=== PATIENT | female | born 1980 | race Caucasian/White ===

== ENCOUNTER 2018-09-11 09:58 | Emergency (ER) | payer MEDICAID ==
[~2018-09-11] VITALS: Ht 149.9 cm; Wt 56.7 kg
[~2018-09-11 09:58] MED LIST: BENZ-248 PO; CLON1TAB10 PO; DIPH50CA8 PO; DIVA500T47 PO; HALO5TAB21 PO; LACT10SO1 PO; LEVO0.0523 PO; MEGE40TA4 PO; QUET200T PO; [UNRECOGNIZED DRUG - CODE] PO
--- NOTE | 2018-09-11 10:21 | NUR ---
PT TO ER BED 7 WITH PEAR PICKER
[2018-09-11 10:23] VITALS: BP 133/78
--- NOTE | 2018-09-11 10:30 | NUR ---
BROUGHT IN BY MANAGEMENT TRAINER FROM [facility]. THEY NOTED PT LEFT GREAT TOE INFLAMMED. PT WITH SEVERE MENTAL DISABILITY UNABLE TO VERBALIZE. HX--UNK RX--UNK
--- NOTE | 2018-09-11 11:22 | NUR ---
XRAY AT BEDSIDE
[2018-09-11] MEDS ORDERED: BACITRACIN OINT 500 UNITS/GM PKT TP ONE (11:35)
[2018-09-11 11:50] VITALS: BP 115/81
--- NOTE | 2018-09-11 11:50 | NUR ---
Patient discharged with v/s stable. Written and verbal after care instructions given and explained to caregiver and pt.rubber attacher verbalized understanding of instructions. Ambulatory with steady gait. All questions addressed prior to discharge. ID band removed. Patient advised to follow up with PMD. Rx of bacitracin ointment given. Patient and caregiver educated on indication of medication including possible reaction and side effects. Opportunity to ask questions provided and answered.
== END 2018-09-11 11:50 | disposition home or self-care (01) ==
LOC: MED 09:58
DX: S91.202A Unspecified open wound of left great toe with damage to nail, initial encounter (principal); E07.9 Disorder of thyroid, unspecified; Z79.899 Other long term (current) drug therapy; Z91.013 Allergy to seafood; Z91.018 Allergy to other foods; X58.XXXA Exposure to other specified factors, initial encounter; Y93.89 Activity, other specified; Y92.89 Other specified places as the place of occurrence of the external cause; Y99.8 Other external cause status
CPT/HCPCS: 73660; 99283

== ENCOUNTER 2018-12-02 16:17 | Emergency (ER) | payer MEDICAID ==
[~2018-12-02] VITALS: Ht 149.9 cm; Wt 59.0 kg
[2018-12-02 16:40] VITALS: BP 117/77
--- NOTE | 2018-12-02 16:55 | NUR ---
38F BIB CAREGIVER FROM [facility]ARE [facility]. PT WAS BITTEN BY OTHER FACILITY MEMBER. EVENT UNWITNESSED. NOTICED BITE FLORENTIN TO R FOREARM. NO ACTIVE BLEEDING NOW. PMH--DEVELOPMENTAL DELAY, AUTISM ALLERGIES--EGGS, SEAFOOD
--- NOTE | 2018-12-02 17:07 | NUR ---
PT AMBULATED WITH CAREGIVER TO ER BED 03
[2018-12-02 17:46] VITALS: BP 128/82
--- NOTE | 2018-12-02 17:46 | NUR ---
Patient discharged with v/s stable. Written and verbal after care instructions given and explained. Patient alert, oriented and verbalized understanding of instructions. Ambulatory with steady gait. All questions addressed prior to discharge. ID band removed. Patient advised to follow up with PMD. Rx of NEOSPORIN TOPICAL OINTMENT given. Patient educated on indication of medication including possible reaction and side effects. Opportunity to ask questions provided and answered.
== END 2018-12-02 17:46 | disposition home or self-care (01) ==
LOC: MED 16:17
DX: S51.851A Open bite of right forearm, initial encounter (principal); E07.9 Disorder of thyroid, unspecified; F84.0 Autistic disorder; Z79.899 Other long term (current) drug therapy; Z91.012 Allergy to eggs; Z91.013 Allergy to seafood; Z86.59 Personal history of other mental and behavioral disorders; W50.3XXA Accidental bite by another person, initial encounter; Y93.89 Activity, other specified; Y92.89 Other specified places as the place of occurrence of the external cause; Y99.8 Other external cause status
CPT/HCPCS: 90471; 90715; 99283

== ENCOUNTER 2020-06-06 13:26 | Emergency (ER) | payer OTHER, MEDICAID ==
[~2020-06-06] VITALS: Ht 147.3 cm; Wt 52.6 kg
[~2020-06-06 13:26] MED LIST changes: +BENZ-203 PO; -BENZ-248 PO; +DIVA500T37 PO; -DIVA500T47 PO; +MEGE40TA33 PO; -MEGE40TA4 PO
[2020-06-06 13:34] VITALS: BP 127/69
[2020-06-06 14:41] VITALS: BP 127/69
== END 2020-06-06 14:41 | disposition home or self-care (01) ==
LOC: MED 13:26
DX: L03.211 Cellulitis of face (principal); E07.9 Disorder of thyroid, unspecified; Z91.012 Allergy to eggs; Z91.013 Allergy to seafood
CPT/HCPCS: 99283

== ENCOUNTER 2021-04-07 10:50 | Emergency (ER) | payer OTHER, MEDICAID ==
[~2021-04-07] VITALS: Ht 149.9 cm; Wt 44.9 kg
[~2021-04-07 10:50] MED LIST changes: -BENZ-203 PO; +BENZ-315 PO; -DIPH50CA8 PO; +LACT-103 PO; -LACT10SO1 PO; +[UNRECOGNIZED DRUG - CODE] PO
--- NOTE | 2021-04-07 12:05 | NUR ---
Audelia tambulated to bed 06 accompanied by mother.
--- NOTE | 2021-04-07 12:10 | NUR ---
PATIENT PRESENTS TO ED WITH R FOOT PAIN. PT CAREGIVER STATES PT HURT FOOT IN CLOSET DOOR. PRESENTS WITH SMALL LACERATION BETWEEN PINKY TOE. DENIES N/V/D; SKIN IS PINK/WARM/DRY; AAOX0 WITH EVEN AND STEADY GAIT; LUNGS CLEAR BL; HR EVEN AND REGULAR; PT DENIES ANY FEVER, CP, SOB, OR COUGH AT THIS TIME; PATIENT STATES PAIN OF 6/10 AT THIS TIME; VSS; PATIENT POSITIONED FOR COMFORT; HOB ELEVATED; BEDRAILS UP X2; BED DOWN. ER MD MADE AWARE OF PT STATUS. PMH: AUTISM, BIPOLAR DISORDER MEDS: HALDOL, BENZTROPINE, CABEROGOLINE ALLERGIES: SHELLFISH, EGGS
--- NOTE | 2021-04-07 12:15 | NUR ---
MELIZA LICEA IS EVALUATING PT AT BEDSIDE
--- NOTE | 2021-04-07 12:31 | NUR ---
RAD at bedside
--- NOTE | 2021-04-07 13:00 | NUR ---
MELIZA Swain is at bedside for wound repair. Assisted with PA to dermabond. and luciana tape applied to digits 3rd 4th and 5th of R foot. 2x2 gauze applied underneath. +CMS. Caregiver remains at bedside for assistance
[2021-04-07] MEDS ORDERED: IBUP-2213 PO (13:15)
[2021-04-07] MEDS ORDERED: CEPH500T PO (13:15)
--- NOTE | 2021-04-07 13:25 | NUR ---
Patient discharged with v/s stable. Written and verbal after care instructions ABOUT LACERATION CARE AND TOE FRACTURE given and explained. Patient alert, oriented and verbalized understanding of instructions. Ambulatory with steady gait. All questions addressed prior to discharge. ID band removed. Patient advised to follow up with PMD. Rx of CEPHALEXIN AND IBUPROFEN given. Patient educated on indication of medication including possible reaction and side effects. Opportunity to ask questions provided and answered.
== END 2021-04-07 13:25 | disposition home or self-care (01) ==
LOC: MED 10:50
DX: S99.291A Other physeal fracture of phalanx of right toe, initial encounter for closed fracture (principal); X58.XXXA Exposure to other specified factors, initial encounter; Y93.89 Activity, other specified; Y92.89 Other specified places as the place of occurrence of the external cause; Y99.8 Other external cause status
CPT/HCPCS: 12001; 73630; 99283; Q0092

== ENCOUNTER 2021-04-08 10:05 | Emergency (ER) | payer OTHER, MEDICAID ==
[~2021-04-08] VITALS: Ht 149.9 cm; Wt 49.9 kg
[~2021-04-08 10:05] MED LIST changes: +CEPH500T PO; +IBUP-2213 PO
[2021-04-08 10:10] VITALS: BP 123/67
--- NOTE | 2021-04-08 10:18 | NUR ---
PT AMBULATED TO ER BED 6 WITH CAREGIVER
--- NOTE | 2021-04-08 10:48 | NUR ---
40 Y/O F HERE WITH TREE DOCTOR HERE FOR FOLLOW UP WOUND CHECK. R ANKLE SWEELING. PT'S BASELINE IS NON VERBAL. ALLERGIES: EGGS, SEAFOOD
[2021-04-08] MEDS ORDERED: BACITRACIN OINT 500 UNITS/GM PKT TP ONE ×2 (11:21→11:25)
--- NOTE | 2021-04-08 11:32 | NUR ---
APPLIED BACITRACIN TO PT'S WOUND AND DRESSED WITH NON-ADHERENT GUAZE PAD AND WRAPPED WITH 3" GUAZE ROLL.
--- NOTE | 2021-04-08 11:45 | NUR ---
Patient discharged with v/s stable. Written and verbal after care instructions given and explained. Patient verbalized understanding. Wheel Chair Assisted with by caregiver. All questions addressed prior to discharge. Advised to follow up with PMD.
== END 2021-04-08 11:45 | disposition home or self-care (01) ==
LOC: MED 10:05
DX: Z48.01 Encounter for change or removal of surgical wound dressing (principal); F31.9 Bipolar disorder, unspecified; Z86.69 Personal history of other diseases of the nervous system and sense organs; Z86.39 Personal history of other endocrine, nutritional and metabolic disease; Z79.1 Long term (current) use of non-steroidal anti-inflammatories (NSAID); Z79.2 Long term (current) use of antibiotics; Z79.899 Other long term (current) drug therapy; Z91.012 Allergy to eggs; Z91.013 Allergy to seafood
CPT/HCPCS: 99282

== ENCOUNTER 2022-06-25 11:20 | Emergency (ER) | payer OTHER, MEDICAID ==
[~2022-06-25] VITALS: Ht 149.9 cm; Wt 44.5 kg
[~2022-06-25 11:20] MED LIST changes: +MEGE40TA PO; -MEGE40TA33 PO
[2022-06-25 11:31] VITALS: BP 148/89
--- NOTE | 2022-06-25 11:33 | NUR ---
Note undone in EDM - 06/25/22 at 1136 by [id number] 41/F WALKED IN C/O SORE THROAT X 1DAY. DENIES FEVER COUGH OR PHLEGM. PT ALSO REPORTS B/L EYE IRRITATION AND EAR IRRITATION. REPORTS TAKING ALLERGY MED WITH NO RELIEF. AFEBRILE AT TRIAGE. AAO4, AMBULATORY, VITALS STABLE. NO ACUTE DISTRESS NOTED. PMH: DENIES
--- NOTE | 2022-06-25 11:42 | NUR ---
PT REFUSING TO HAVE BP TAKEN, RIPPING OFF CUFF AND FLAILING ARMS, ERMD INFORMED
--- NOTE | 2022-06-25 11:48 | NUR ---
41 Y/O FEMALE BIB MASTER CONTROL SUPERVISOR C/O VOMITING 3 TIMES TODAY. PER MASTER CONTROL SUPERVISOR PT HIT HER FOREHEAD ON THE TABLE 3 TIMES X 6 DAYS AGO. DENIES LOC. NOTED BRUISE ON THE MIDDLE OF THE FOREHEAD PER CAREGIVER PT IS AT BASELINE, DENIES ANY BLOOD IN VOMITUS. PT REFUSED TO CHECK VITAL SIGNS. PT DOES NOT APPEAR TO BE GUARDING ABDOMEN, CAREGIVER DENIES DIARRHEA PMH: SEIZURE, AUTISM, THYROID, BIPOLAR
--- NOTE | 2022-06-25 12:04 | NUR ---
MELIZA JURADO AT BEDSIDE FOR EVAL
[2022-06-25] MEDS ORDERED: NACL 0.9% 1,000 ML IV ONE (12:10)
[2022-06-25] MEDS ORDERED: ONDANSETRON 4 MG/2 ML VIAL IVP ONE ×2 (12:10→13:15)
--- NOTE | 2022-06-25 12:45 | NUR ---
pt refusing iv and lab draw at this time
[2022-06-25] MEDS ORDERED: ONDANSETRON 4 MG ODT PO ONE (13:05)
[2022-06-25] MEDS ORDERED: HALOPERIDOL IM 5 MG/ML VIAL IM ONE (13:05)
--- NOTE | 2022-06-25 13:20 | NUR ---
PT AMBULATED TO BATHROOM WITH FARM OWNER OPERATOR
--- NOTE | 2022-06-25 13:51 | NUR ---
PT DRINKING APPLE JUICE AND EATING CHRIS CRACKERS, NO DISTRESS NOTED, NO VOMITUS NOTED IN EMESIS BAG
[2022-06-25] MEDS ORDERED: ONDA-188 SL (14:28)
--- NOTE | 2022-06-25 14:33 | NUR ---
ATTEMPTED TO RECHECK VITALS, UNABLE TO OBTAIN BP, PT UNABLE TO STAY STILL AND BEING AGGRESSIVE WITH RN. WAS ABLE TO OBTAIN HR, O2 AND TEMP, CHARTED.
--- NOTE | 2022-06-25 14:39 | NUR ---
Patient discharged with v/s stable. Written and verbal after care instructions ABOUT NAUSEA AND VOMITING given and explained. Patient alert, oriented and verbalized understanding of instructions. Ambulatory with steady gait. All questions addressed prior to discharge. ID band removed. Patient W/ CAREGIVER advised to follow up with PMD. Rx of ZOFRAN ODT given. Patient AND CAREGIVER educated on indication of medication including possible reaction and side effects. Opportunity to ask questions provided and answered.
== END 2022-06-25 14:39 | disposition home or self-care (01) ==
LOC: MED 11:20
DX: R11.2 Nausea with vomiting, unspecified (principal); E03.9 Hypothyroidism, unspecified; Z91.018 Allergy to other foods; Z91.013 Allergy to seafood
CPT/HCPCS: 96372; 99283; J1630; Q0162; J2405